=== PATIENT | female | born 2000 | race American Indian/Alaskan Native ===

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

== ENCOUNTER 2020-06-21 19:06 | Emergency (ER) | payer MEDICAID ==
[2020-06-21 23:03] VITALS: BP 115/67
[2020-06-22 01:50] LABS: Basophils % (Auto) 0.4 % (0.0-1.8); Eosinophils # (Auto) 0.1 K/mm3 (0.0-0.4); Eosinophils % (Auto) 0.9 % (0.0-4.3); Hematocrit 34.8 % (30.3-42.9); Hemoglobin 11.4 gm/dl (10.1-14.3); Lymphocytes % (Auto) 23.9 % (13.4-35.0); Mean Corpuscular HGB Conc 33 % (30-34); Mean Corpuscular Volume 85 fl (79-97); Monocytes # (Auto) 0.7 K/mm3 (0.0-0.8); Monocytes % (Auto) 7.8 % (0.0-7.3); Platelet Count 225 K/mm3 (140-440); Red Blood Count 4.07 M/mm3 (3.65-5.03); Red Cell Distribution Width 14.5 % (13.2-15.2)
--- NOTE | 2020-06-24 22:36 | Emergency Department Report ---
ED Female HPI - General Chief complaint: Urogenital-Female Stated complaint: AND WOULD LIKE TO BE CHECK Time Seen by Provider: 06/22/20 00:47 Source: patient Mode of arrival: Ambulatory Limitations: No Limitations - History of Present Illness Initial comments: 20-year-old [place] female is emerged department complaining of a 1+ month history of waxing and waning vaginal itching with occasional discharge that is faint also associated with a rash is bumpy in nature to her groin region. States that she also is but she is unsure exactly how far along. Reports no fever, chills, sweats reports no vaginal bleeding, no chest pain, no presyncope, no headache, no abdominal trauma MD Complaint: vaginal discharge Are you Now?: Yes Associated Symptoms: denies: loss of appetite, dysuria, shortness of breath, syncope, weakness - Related Data Previous Rx's Medication Instructions Recorded Last Taken Type Ibuprofen [Motrin] 800 mg PO Q8HR PRN #30 tablet 08/25/19 Unknown Rx Allergies Allergy/AdvReac Type Severity Reaction Status Date / Time No Known Allergies Allergy Unverified 08/25/19 09:03 ED Review of Systems ROS: Stated complaint: AND WOULD LIKE TO BE CHECK Other details as noted in HPI Comment: All other systems reviewed and negative ED Past Medical Hx - Past Medical History Previous Medical History?: No - Surgical History Past Surgical History?: No - Social History Smoking Status: Never Smoker Substance Use Type: None - Medications Home Medications: Home Medications Medication Instructions Recorded Confirmed Last Taken Type Ibuprofen [Motrin] 800 mg PO Q8HR PRN #30 tablet 08/25/19 Unknown Rx ED Physical Exam - General Limitations: No Limitations General appearance: alert, in no apparent distress - Head Head exam: Present: atraumatic, normocephalic - Eye Eye exam: Present: normal appearance - ENT ENT exam: Present: mucous membranes moist - Neck Neck exam: Present: normal inspection - Respiratory Respiratory exam: Present: normal lung sounds bilaterally. Absent: respiratory distress - Cardiovascular Cardiovascular Exam: Present: regular rate, normal rhythm. Absent: systolic murmur, diastolic murmur, rubs, gallop - GI/Abdominal GI/Abdominal exam: Present: soft, normal bowel sounds - Extremities Exam Extremities exam: Present: normal inspection - Back Exam Back exam: Present: normal inspection - Neurological Exam Neurological exam: Present: alert, oriented X3 - Psychiatric Psychiatric exam: Present: normal affect, normal mood - Skin Skin exam: Present: warm, dry, intact, normal color. Absent: rash ED Course Vital Signs 06/21/20 20:31 Temperature 97.9 F Pulse Rate 87 Respiratory 18 Rate Blood Pressure 115/67 O2 Sat by Pulse 99 Oximetry ED Medical Decision Making - Lab Data Result diagrams: 06/22/20 01:18 - Medical Decision Making The patient is oriented to person, place, and time, has the capacity to make decisions regarding the medical care offered. The patient speaks coherently and exhibits no evidence of having an altered level of consciousness or alcohol or drug intoxication to a point that would impair judgment. They respond knowingly to questions about recommended treatment and alternate treatments including no further testing or treatment; participate in diagnostic and treatment decisions by means of rational thought processes; and understand the items of minimum basic medical treatment information with respect to that treatment (the nature and seriousness of the illness, the nature of the treatment, the probable degree and duration of any benefits and risks of any medical intervention that is being recommended, and the consequences of lack of treatment, and the nature, risks, and benefits of any reasonable alternatives). I have reviewed the relevant issues with the patient. They are aware of the suspected diagnosis suggested by screening exam, , based upon the initiated medical screening exam. The patient acknowledges understanding of the reasons for recommendations regarding medical treatment, medical testing, and further monitoring and observation. The recommended medical care being refused has been discussed with the patient and is. The risks of refusing recommended care that were disclosed and acknowledged by the patient are loss of current lifestyle, permanent mental impairment, and . The patient understands the relevant information of the nature of their medical condition, as well as the risks, benefits, and treatment alternatives (including non-treatment), consequences of refusing care, and can competently communicate a rational explanation about their choice of care options. [Discharge instructions were provided to the patient.] The patient understands they are welcome to return to the hospital at any time to receive the re commended care or any other care at any time, regardless of their ability to pay for such care. Critical care attestation.: If time is entered above; I have spent that time in minutes in the direct care of this critically ill patient, excluding procedure time. ED Disposition Clinical Impression: Vaginitis Disposition: DC-07 LEFT AGAINST MED ADVICE Is pt being admited?: No Does the pt Need Aspirin: No Condition: Undetermined Referrals: PRIMARY CARE, [Primary Care Provider] - 3-5 Days Forms: AMA Form
== END 2020-06-22 01:57 | disposition left against medical advice (07) ==
LOC: ED 19:06
DX: O26.891 Other specified pregnancy related conditions, first trimester (principal); Z53.21 Procedure and treatment not carried out due to patient leaving prior to being seen by health care provider
CPT/HCPCS: 36415; 84703; 85025

== ENCOUNTER 2020-11-28 15:50 | Inpatient (IN) | payer MEDICAID ==
--- NOTE | 2020-11-28 18:03 | History and Physical Report ---
History of Present Illness Date of examination: 11/28/20 Chief complaint: ctx and LOF earlier this morning about 6am. History of present illness: at 40.4wks by dates c/w ultrasoun with c/o painful ctx that started one day ago and worsened today and also LOF at 6am with mucus plug. Denies vag bleeding or headache. pt admits to movement. Declines epidural and wants to eat a meal at this time . care at [facility] with rubella immune, HIV neg, Rh positive, RPR and HepsAg neg and GBS negative. Past History Past Medical History: no pertinent history Past Surgical History: no surgical history Social history: no significant social history - Obstetrical History Expected Date of Delivery: 11/24/20 Actual Gestation: 40 Week(s) 4 Day(s) : 1 Number of Living Children: 0 Medications and Allergies Allergies Allergy/AdvReac Type Severity Reaction Status Date / Time No Known Allergies Allergy Unverified 08/25/19 09:03 Home Medications Medication Instructions Recorded Confirmed Last Taken Type Ibuprofen [Motrin] 800 mg PO Q8HR PRN #30 tablet 08/25/19 Unknown Rx Review of Systems All systems: negative (ctx and LOF) - Vital Signs Vital signs: Vital Signs Pulse Pulse Ox 113 H 97 11/28/20 16:31 11/28/20 16:31 Temp Pulse Resp BP Pulse Ox 99.0 F 117 H 20 112/55 99 11/28/20 16:33 11/28/20 17:47 11/28/20 16:33 11/28/20 16:33 11/28/20 17:47 - Physical Exam Breasts: Positive: deferred Cardiovascular: Regular rate Lungs: Positive: Normal air movement Abdomen: Positive: soft Genitourinary (Female): Positive: normal external genitalia Extremities: Positive: normal - Obstetrical FHR: category 1 Uterine Contraction Monitor Mode: External Cervical Dilatation: 4 (per triage nurse) Cervical Effacement Percentage: 90 station: 0 Uterine Contraction Pattern: Irregular Results All other labs normal. Assessment and Plan Term preg at 40.4wks by dates, GBS negative and in latent labor 1. Admit to labor and delivery 2. Will augment with pitocin if cervix unchanged 3. May have IV pain med or epidural if pt changes her mind 4. plan discussed with pt and she agrees all questions encouraged and answered
[2020-11-28] MEDS ORDERED: TERBUTALINE 1 MG/1 ML INJ SUB-Q PRN (18:44)
[2020-11-28] MEDS ORDERED: LIDOCAINE (2%) 20 MG/1 ML VIAL 20 ML MDV INFILTRATI ONE (18:44)
[2020-11-28] MEDS ORDERED: MINERAL OIL 30 ML ORAL LIQD PO PRN (18:44)
[2020-11-28] MEDS ORDERED: NalbUPHINE 10 MG/1 ML INJ IV PRN (18:44)
[2020-11-28] MEDS ORDERED: ePHEDrine SULFATE 50 MG/1 ML INJ IV PRN (18:44)
[2020-11-28] MEDS ORDERED: fentaNYL 100 MCG/2 ML INJ IV PRN (18:44)
[2020-11-28] MEDS ORDERED: OXYTOCIN DRIP 30 UNITS/500 ML BAG IV SCH ×2 (19:00)
[2020-11-28 19:07] LABS: Hemoglobin 10.6 gm/dl (10.1-14.3); Mean Corpuscular HGB Conc 33 % (30-34); Mean Corpuscular Volume 83 fl (79-97); Platelet Count 283 K/mm3 (140-440); Red Blood Count 3.85 M/mm3 (3.65-5.03); Red Cell Distribution Width 14.4 % (13.2-15.2)
[2020-11-28] MEDS: LACTATED RINGERS 1,000 ML IV SCH ×2 (21:11→22:25)
--- NOTE | 2020-11-29 | Event Note ---
Date: 11/28/20 pt evaluated and FHR category I, AROM done with clear fluid; pelvic -/-, IUPC placed without difficulty. pt already received IV pain med and tearful in pain. Pt told whenever she is ready she can have epidural if she changes her mind. Pt placed in knee/chest position with pain mostly to central back pain. Ctx inadequate at this time with pitocin at 2mu/min. Expect
[2020-11-29] MEDS ORDERED: LIDOCAINE (2%) 20 MG/1 ML VIAL 20 ML MDV INFILTRATI ONE ×2 (00:34→00:55)
[2020-11-29] MEDS ORDERED: miSOPROStol 200 MCG TAB ONE (00:36)
--- NOTE | 2020-11-29 01:19 | Anesthesia Consultation ---
Anesthesia Consult and Med Hx Date of service: 11/29/20 - Airway Anesthetic Teeth Evaluation: Good ROM Head & Neck: Adequate Mental/Hyoid Distance: Adequate Mallampati Class: Class II Intubation Access Assessment: Probably Good - Pulmonary Exam CTA: Yes - Cardiac Exam Cardiac Exam: RRR - Pre-Operative Health Status ASA Pre-Surgery Classification: ASA2 Proposed Anesthetic Plan: Spinal - Pulmonary Hx Smoking: No Hx Asthma: No Hx Sleep Apnea: No - Cardiovascular System Hx Hypertension: No Hx Heart Attack/AMI: No Hx Angina: No - Central Nervous System Hx Seizures: No Hx Psychiatric Problems: No - Gastrointestinal Hx Gastroesophageal Reflux Disease: No - Endocrine Hx Renal Disease: No Hx Liver Disease: No Hx Insulin Dependent Diabetes: No Hx Non-Insulin Dependent Diabetes: No Hx Hypothyroidism: No Hx Hyperthyroidism: No - Hematic Hx Anemia: Yes Hx Sickle Cell Disease: No - Other Systems Hx Alcohol Use: No - Additional Comments Anesthesia Medical History Comments: Placing a saddle block PSR for repair of 3rd degree lac
--- NOTE | 2020-11-29 01:22 | Progress Note ---
Spinal Anesthesia Block - Spinal Anesthesia Block Start Time: 01:05 Stop Time: 01:15 Performed by:: HUGO BENITES Procedure: Spinal anesthesia block is being performed for [repair of 3rd degree laceration]. H&P, labs have been reviewed. Patient's questions and concerns have been answered. Informed consent has been performed. Timeout has was performed. Patient in lateral position on bed. Sterile prep and drape was performed. 3 mL 1% lidocaine skin wheal at L [3]-L [4]. Needle introducer advanced. 25-gauge spinal needle advanced, [+] CSF [-] blood. [Marcaine 7.5mg] Spinal dose was given. All needles removed. Patient placed sitting up to achieve saddle block. Patient tolerated procedure well.
[2020-11-29] MEDS ORDERED: ONDANSETRON 4 MG/2 ML INJ IV PRN ×2 (01:23→06:12)
[2020-11-29] MEDS ORDERED: miSOPROStol 200 MCG TAB VG SCH (02:00)
--- NOTE | 2020-11-29 02:30 | Procedure Note ---
OB Delivery Note - Delivery Date of Delivery: 11/29/20 Surgeon: JUAN SUMMERS Estimated blood loss: other (350cc) - Vaginal Delivery presentation: vertex Delivery position: OA Delivery augmentation: rupture of membranes, pitocin Delivery monitor: external FHT, external uterine, internal uterine Route of delivery: Delivery placenta: spontaneous Delivery laceration: 3rd degree Delivery repair: vicryl (0-vicryl on anal sphincter, partial laceration), chromic (2-0 chromic running locked for the remainder of the repair), other (abraisions x2 to left and right labia that were hemostatic) Anesthesia: other (saddle block by anesthesiologist in the room) Delivery comments: Nurse called me to bed for delivery of baby with head on perineum. SAVD of viable male infant with APGARS 7/9; wt 3884g; spontaneous delivery of placenta. Pt sustained 3rd degree laceration and without epidural. Local anesthetic not effective with inadequate exposure. Anesthesiology team consulted for pain mgt and saddle block done. When same effective and ahumada cath placed to gravity, 3rd degree laceration repaired. Angelica shaped repair done with interrupted 0- vicryl to anal sphincter. rectovag exam done with intact sphincter and remaining repair of vagina done with 2-0 chromic running locked suture and skin subcutaneously with excellent hemostasis. Pt noted to have low grade fever of 99.2 per nurse report and ancef 2gm given. Cervix evaluated and no lacerations seen. Bimanual exam done and pt given IV pitocin and cytotec per rectum with good response. Sponge, lap and instrument counts correct x2. Mom and baby stable - Infant A at 1 minute: 7 at 5 minutes: 9 Infant Gender: Male (Clear amniotic fluid. Wt 3884g)
[2020-11-29] MEDS ORDERED: LACTATED RINGERS 1,000 ML IV ONE (03:11)
[2020-11-29] MEDS ORDERED: MAGNESIUM HYDROXIDE (MOM) ORAL LIQD UDC PO PRN (06:12)
[2020-11-29] MEDS ORDERED: PROMETHAZINE 25 MG TAB PO PRN (06:12)
[2020-11-29] MEDS ORDERED: LANOLIN/ZINC/DIMETHICONE (LANSINOH) 7 GM TP PRN (06:12)
[2020-11-29] MEDS ORDERED: diphenhydrAMINE 25 MG CAP PO PRN (06:12)
[2020-11-29] MEDS ORDERED: PROMETHAZINE 25 MG RECT SUPP PR PRN (06:12)
[2020-11-29] MEDS: IBUPROFEN 600 MG TAB PO SCH ×3 (06:49→23:51)
[2020-11-29] MEDS: oxyCODONE /ACETAMINOPHEN 5-325MG TAB PO PRN ×2 (08:53→17:15)
[2020-11-29] MEDS: WITCH HAZEL/ GLYCERIN PAD TP PRN (08:54)
[2020-11-29] MEDS: DOCUSATE SODIUM 100 MG CAP PO SCH ×2 (08:55→21:15)
[2020-11-29] MEDS: PRENATAL VIT27-FE FUMARATE-FOLIC ACID VIT TAB PO SCH (08:56)
[2020-11-29] MEDS ORDERED: metroNIDAZOLE/NS 500 MG/100 ML 500 MG/100 ML BAG IV ONE (10:30)
--- NOTE | 2020-11-29 10:43 | Post Anesthesia Evaluation ---
- Post Anesthesia Evaluation Patient Participated: Yes Airway Patent: Yes Stable Respiratory Function: Yes Nausea/Vomiting: No Temp > 96.8F: Yes Pain Manageable: Yes Adequeate Hydration: Yes Anesthesia Complications: No Block Receding Appropriately: Yes Patient on Ventilator: No
[2020-11-29 18:15] LABS: Hematocrit 28.4 % (30.3-42.9); Hemoglobin 9.1 gm/dl (10.1-14.3)
[2020-11-29] MEDS: metroNIDAZOLE 500 MG TAB PO SCH (21:15)
[2020-11-30] MEDS: IBUPROFEN 600 MG TAB PO SCH ×5 (05:41→23:47)
--- NOTE | 2020-11-30 10:15 | Progress Note ---
Assessment and Plan A: PP Day #1 Asymptomatic Anemia P: Follow Routine Orders Infed 100mg IM x 1 dose Subjective - Subjective Date of service: 11/30/20 Patient reports: appetite normal, voiding normally, pain well controlled, flatus, ambulating normally [place]: doing well, other (Baby in the room under [employer] [employer]), bottle feeding (and ) Objective - Vital Signs Latest vital signs: Vital Signs Temp Pulse Resp BP BP Pulse Ox 11/30/20 06:39 18 11/30/20 06:38 18 11/30/20 05:41 18 11/30/20 00:51 18 11/30/20 00:15 98.2 F 96 H 20 105/65 98 11/29/20 23:51 18 11/29/20 17:18 20 11/29/20 17:15 20 11/29/20 12:25 97.8 F 101 H 20 117/55 100 Intake and Output 11/29/20 11/30/20 11/30/20 22:59 06:59 14:59 Intake Total 720 Output Total 500 Balance 220 Intake: Oral 360 Intake, Free Water 360 Output: Urine 500 Void 500 Other: Total, Intake Amount 240 Total, Output Amount 500 # Voids Indwelling Catheter 1 - Exam Breasts: Present: normal Cardiovascular: Present: Regular rate Lungs: Present: Clear to auscultation, Normal air movement Abdomen: Present: normal appearance, soft, normal bowel sounds Uterus: Present: normal, firm, fundal height below umbilicus Extremities: Present: normal - Labs Labs: Abnormal lab results 11/29/20 Range/Units 17:49 Hgb 9.1 L (10.1-14.3) gm/dl Hct 28.4 L (30.3-42.9) %
[2020-11-30] MEDS ORDERED: IRON DEXTRAN COMPLEX 100 MG/2 ML INJ IM SCH (11:00)
[2020-11-30] MEDS: DOCUSATE SODIUM 100 MG CAP PO SCH ×2 (11:17→21:48)
[2020-11-30] MEDS: PRENATAL VIT27-FE FUMARATE-FOLIC ACID VIT TAB PO SCH (11:18)
[2020-11-30] MEDS: metroNIDAZOLE 500 MG TAB PO SCH ×2 (11:21→21:48)
[2020-11-30] MEDS: WITCH HAZEL/ GLYCERIN PAD TP PRN (19:57)
[2020-12-01] MEDS: IBUPROFEN 600 MG TAB PO SCH ×2 (05:51→12:00)
--- NOTE | 2020-12-01 10:35 | Discharge Summary ---
Providers - Providers Date of Admission: 11/28/20 15:55 Date of discharge: 12/01/20 Attending physician: DAYANNA DE LA GARZA MD Primary care physician: DAYANNA DE LA GARZA MD Hospitalization Reason for admission: active labor Delivery: other (SAVD) Episiotomy: none Laceration: 3rd degree Incision: normal, intact Discharge diagnosis: IUP at term delivered [place] baby: male Hospital course: Pt was admitted in labor and had a SAVD with a 3rd degree lac. She dev a low grade fever and received abt during pp. See H&P, delivery summary, and pp notes. Condition at discharge: Stable Disposition: DC-01 TO HOME OR SELFCARE Plan - Discharge Medications Prescriptions: Ibuprofen [Motrin] 800 mg PO Q8HR PRN 14 Days #40 tablet PRN Reason: Pain, Mild (1-3) oxyCODONE /ACETAMINOPHEN [Percocet 5/325] 1 tab PO Q4HR 7 Days #20 tab - Provider Discharge Summary Activity: routine, no sex for 6 weeks, no heavy lifting 4 weeks, no strenuous exercise Diet: routine Instructions: routine Additional instructions: [] Smoking cessation referral if applicable(refer to patient education folder for contact #) [] Refer to [facility] Booklet Call your doctor immediately for: * Fever > 100.5 * Heavy vaginal bleeding ( >1 pad per hour) * Severe persistent headache * Shortness of breath * Reddened, hot, painful area to leg or breast * Drainage or odor from incision. * Keep incision clean and dry at all times and follow doctor's instructions regarding bathing/showering - Follow up plan Follow up: DAYANNA DE LA GARZA MD [Primary Care Provider] - 6 Weeks Forms: [facility] Discharge Summary
[2020-12-01] MEDS: metroNIDAZOLE 500 MG TAB PO SCH (11:30)
[2020-12-01] MEDS: DOCUSATE SODIUM 100 MG CAP PO SCH (11:30)
[2020-12-01] MEDS: PRENATAL VIT27-FE FUMARATE-FOLIC ACID VIT TAB PO SCH (11:30)
[2020-12-01 12:49] VITALS: BP 112/58
[2020-12-01] MEDS: WITCH HAZEL/ GLYCERIN PAD TP PRN (13:48)
== END 2020-12-01 15:30 | disposition home or self-care (01) | DRG 775 ==
LOC: TRG 15:50 → APU 15:51 → LD 15:55 → TRG 18:44 → OB 11-29 05:18
PROVIDERS: ADMIT Obstetrics & Gynecology; ATTEND Obstetrics & Gynecology
PROC: 10907ZC Drainage of Amniotic Fluid, Therapeutic from Products of Conception, Via Natural or Artificial Opening (ICD-10-PCS; 2020-11-28)
PROC: 10H07YZ Insertion of Other Device into Products of Conception, Via Natural or Artificial Opening (ICD-10-PCS; 2020-11-28)
PROC: 10E0XZZ Delivery of Products of Conception, External Approach (ICD-10-PCS; principal; 2020-11-29)
PROC: 0DQR0ZZ Repair Anal Sphincter, Open Approach (ICD-10-PCS; 2020-11-29)
PROC: 4A033R1 Measurement of Arterial Saturation, Peripheral, Percutaneous Approach (ICD-10-PCS; 2020-11-29)
DX: O70.20 Third degree perineal laceration during delivery, unspecified (principal); Z3A.40 40 weeks gestation of pregnancy; Z37.0 Single live birth; O99.02 Anemia complicating childbirth; D64.9 Anemia, unspecified; Z20.822 Contact with and (suspected) exposure to COVID-19
CPT/HCPCS: 36415; 59025; 82805; 84112; 85014; 85018; 85027; 86850; 86900; 86901; 99211; G0378; G0463; J0690; J1750; J2590; J3010; J7120; U0003

== ENCOUNTER 2022-03-11 12:34 | Emergency (ER) | payer MEDICAID ==
[2022-03-11 12:49] VITALS: BP 151/69
[2022-03-11] MEDS ORDERED: DEXTROSE 50% IN WATER (25GM) 50 ML SYRINGE IV ONE (21:11)
== END 2022-03-11 19:00 | disposition left against medical advice (07) ==
LOC: ED 12:34
DX: R10.9 Unspecified abdominal pain (principal); Z53.21 Procedure and treatment not carried out due to patient leaving prior to being seen by health care provider
CPT/HCPCS: J3490

== ENCOUNTER 2022-03-12 20:39 | Emergency (ER) | payer MEDICAID ==
--- NOTE | 2022-03-12 23:47 | Emergency Department Report ---
ED Abdominal Pain HPI - General Chief Complaint: Abdominal Pain Stated Complaint: ABD PAIN/HERNIA Time Seen by Provider: 03/12/22 23:09 Source: patient Mode of arrival: Ambulatory Limitations: No Limitations - History of Present Illness Initial Comments: 21-year-old female no significant past medical history reports to the ER with complaints of abdominal hernia for 2 to 3 days. Patient reports decreasing abdominal gas as well as a decrease in bowel movements. Patient also reports nausea. Patient reports no history of abdominal hernia. Patient reports that about 2 to 3 days ago she was bringing some groceries in when she experienced abdominal discomfort. Patient reports no fever. No chills. No other acute symptoms at this time. - Related Data Previous Rx's Medication Instructions Recorded Last Taken Type Ibuprofen [Motrin] 800 mg PO Q8HR PRN #30 tablet 08/25/19 Unknown Rx Ibuprofen [Motrin] 800 mg PO Q8HR PRN 14 Days #40 11/29/20 Unknown Rx tablet oxyCODONE /ACETAMINOPHEN [Percocet 1 tab PO Q4HR 7 Days #20 tab 11/29/20 Unknown Rx 5/325] Allergies Allergy/AdvReac Type Severity Reaction Status Date / Time No Known Allergies Allergy Verified 03/11/22 12:47 ED Review of Systems ROS: Stated complaint: ABD PAIN/HERNIA Other details as noted in HPI Comment: All other systems reviewed and negative Gastrointestinal: abdominal pain, nausea. denies: vomiting ED Past Medical Hx - Past Medical History Previous Medical History?: No Hx Hypertension: No Hx Heart Attack/AMI: No Hx Diabetes: No Hx Deep Vein Thrombosis: No Hx Liver Disease: No Hx Renal Disease: No Hx Sickle Cell Disease: No Hx Seizures: No Hx Asthma: No Hx HIV: No Additional medical history: HERNIA - Social History Smoking Status: Never Smoker - Medications Home Medications: Home Medications Medication Instructions Recorded Confirmed Last Taken Type Ibuprofen [Motrin] 800 mg PO Q8HR PRN #30 tablet 08/25/19 11/29/20 Unknown Rx Ibuprofen [Motrin] 800 mg PO Q8HR PRN 14 Days #40 11/29/20 Unknown Rx tablet oxyCODONE /ACETAMINOPHEN [Percocet 1 tab PO Q4HR 7 Days #20 tab 11/29/20 Unknown Rx 5/325] ED Physical Exam - General Limitations: No Limitations General appearance: alert, in no apparent distress - Head Head exam: Present: atraumatic, normocephalic - Eye Eye exam: Present: normal appearance - ENT ENT exam: Present: mucous membranes moist - Neck Neck exam: Present: normal inspection - Respiratory Respiratory exam: Present: normal lung sounds bilaterally. Absent: respiratory distress - Cardiovascular Cardiovascular Exam: Present: regular rate, normal rhythm. Absent: systolic murmur, diastolic murmur, rubs, gallop - GI/Abdominal GI/Abdominal exam: Present: soft, distended, tenderness, normal bowel sounds, hernia. Absent: guarding - Extremities Exam Extremities exam: Present: normal inspection - Back Exam Back exam: Present: normal inspection - Neurological Exam Neurological exam: Present: alert, oriented X3 - Psychiatric Psychiatric exam: Present: normal affect, normal mood - Skin Skin exam: Present: warm, dry, intact, normal color. Absent: rash ED Course Vital Signs 03/12/22 03/13/22 21:08 04:11 Temperature 98.6 F Pulse Rate 83 81 Respiratory 18 14 Rate Blood Pressure 123/67 127/69 [Right] O2 Sat by Pulse 98 100 Oximetry ED Medical Decision Making - Lab Data Result diagrams: 03/12/22 23:54 03/12/22 23:54 - Radiology Data [facility] [address] [place] [address] Ultrasound Report Signed Patient: JAMES SMITH MR# : [id number] : 2000 Acct:[id number] Age/Sex: 21 / F ADM Date: 03/12/22 Loc: ED Attending Dr: Ordering Physician: ELVER GUALLPA NP Date of Service: 03/13/22 Procedure(s): US abdomen limited Accession Number(s): [id number] cc: ELVER GUALLPA NP LIMITED ABDOMINAL WALL ULTRASOUND INDICATION: , abdominal wall palpable abnormality near the umbilicus COMPARISON: None FINDINGS: Within the anterior abdominal wall near the umbilicus in the area of palpable concern there is a questionable ovoid hypoechoic area in the deep subcutaneous tissues which may just represent a slightly more hypoechoic band of abnormal tissue rather than a true lesion. Possibly this could be a small hematoma but I doubt is significant. This may be worthwhile following with ultrasound to determine stability however. EARLY OBSTETRICAL ULTRASOUND INDICATION: preg . unknown weeks. COMPARISON: None pertinent available TECHNIQUE: Transabdominal FINDINGS: Uterus measures 15.4 cm. Small uterine fundal gestational sac is seen. pole is noted with estimated gestational age by crown-rump length of 6 weeks 2 days. Cardiac activity was documented at 130 bpm. Yolk sac is seen. Ovaries appear within normal limits with blood flow seen. No free fluid is noted. IMPRESSION: 6 week 2 days viable appearing intrauterine Signer Name: Demarcus Rahman MD Signed: 03/13/2022 3:45 AM Workstation Name: [id number] Transcribed By: BECKY Dictated By: Demarcus Rahman MD Electronically Authenticated By: Demarcus Rahman MD Signed Date/Time: 03/13/22 0345 DD/ 0334 TD/TT: - Medical Decision Making 21-year-old female no significant past medical history reports to the ER with complaints of abdominal hernia for 2 to 3 days. Patient reports decreasing abdominal gas as well as a decrease in bowel movements. Patient also reports nausea. Patient reports no history of abdominal hernia. Patient reports that about 2 to 3 days ago she was bringing some groceries in when she experienced abdominal discomfort. Patient reports no fever. No chills. No other acute symptoms at this time. On physical exam there is a slight distention noted near the umbilicus. No firmness noted. Attempted reduction, does not appear to be hernia in nature. No pulsation noted. CBC CMP unremarkable. hCG quant 54,868 Ultrasound. FINDINGS: Within the anterior abdominal wall near the umbilicus in the area of palpable concern there is a questionable ovoid hypoechoic area in the deep subcutaneous tissues which may just represent a slightly more hypoechoic band of abnormal tissue rather than a true lesion. Possibly this could be a small hematoma but I doubt is significant. This may be worthwhile following with ultrasound to determine stability however. Patient is 6 weeks 2 days with a viable IUP. Patient informed the ultrasound results patient informed to follow her [employer] to have follow-up with ultrasound imaging. Patient has had a bowel movement while here in the ER. Unlikely patient does have a hernia. Patient reports she had a similar distention and close umbilicus 6 weeks of her prior last year. Patient agrees with plan of care and verbalized understanding. No further work-up is noted at this time. Patient informed if symptoms are to get worse to report back to the ER. Vital Signs 03/12/22 03/13/22 21:08 04:11 Temperature 98.6 F Pulse Rate 83 81 Respiratory 18 14 Rate Blood Pressure 123/67 127/69 [Right] O2 Sat by Pulse 98 100 Oximetry Lab Results 03/12/22 03/12/22 03/12/22 Range/Units 23:54 23:54 23:54 WBC 8.6 (4.5-11.0) K/mm3 RBC 4.43 (3.65-5.03) M/mm3 Hgb 10.3 (10.1-14.3) gm/dl Hct 32.6 (30.3-42.9) % MCV 74 L (79-97) fl MCH 23 L (28-32) pg MCHC 32 (30-34) % RDW 17.5 H (13.2-15.2) % Plt Count 347 (140-440) K/mm3 Lymph % (Auto) 31.7 (13.4-35.0) % Letcher % (Auto) 9.8 H (0.0-7.3) % Eos % (Auto) 0.5 (0.0-4.3) % Baso % (Auto) 0.5 (0.0-1.8) % Lymph # (Auto) 2.7 (1.2-5.4) K/mm3 Letcher # (Auto) 0.8 (0.0-0.8) K/mm3 Eos # (Auto) 0.0 (0.0-0.4) K/mm3 Baso # (Auto) 0.0 (0.0-0.1) K/mm3 Seg Neutrophils % 57.5 (40.0-70.0) % Seg Neutrophils # 4.9 (1.8-7.7) K/mm3 Sodium 135 L (137-145) mmol/L Potassium 3.8 (3.6-5.0) mmol/L Chloride 102.3 (98-107) mmol/L Carbon Dioxide 22 (22-30) mmol/L Anion Gap 15 mmol/L BUN 7 (7-17) mg/dL Creatinine 0.6 (0.6-1.2) mg/dL Estimated GFR > 60 ml/min BUN/Creatinine Ratio 12 % Glucose 81 (65-100) mg/dL Calcium 9.3 (8.4-10.2) mg/dL Total Bilirubin 0.40 (0.1-1.2) mg/dL AST 22 (5-40) units/L ALT 16 (7-56) units/L Alkaline Phosphatase 59 (35-129) units/L Total Protein 7.1 (6.3-8.2) g/dL Albumin 4.2 (3.9-5) g/dL Albumin/Globulin Ratio 1.4 % HCG, Qual (Negative) HCG, Quant [id number] H (0-4) mIU/mL 03/12/22 03/13/22 Range/Units 23:54 00:51 WBC (4.5-11.0) K/mm3 RBC (3.65-5.03) M/mm3 Hgb (10.1-14.3) gm/dl Hct (30.3-42.9) % MCV (79-97) fl MCH (28-32) pg MCHC (30-34) % RDW (13.2-15.2) % Plt Count (140-440) K/mm3 Lymph % (Auto) (13.4-35.0) % Letcher % (Auto) (0.0-7.3) % Eos % (Auto) (0.0-4.3) % Baso % (Auto) (0.0-1.8) % Lymph # (Auto) (1.2-5.4) K/mm3 Letcher # (Auto) (0.0-0.8) K/mm3 Eos # (Auto) (0.0-0.4) K/mm3 Baso # (Auto) (0.0-0.1) K/mm3 Seg Neutrophils % (40.0-70.0) % Seg Neutrophils # (1.8-7.7) K/mm3 Sodium (137-145) mmol/L Potassium (3.6-5.0) mmol/L Chloride (98-107) mmol/L Carbon Dioxide (22-30) mmol/L Anion Gap mmol/L BUN (7-17) mg/dL Creatinine (0.6-1.2) mg/dL Estimated GFR ml/min BUN/Creatinine Ratio % Glucose (65-100) mg/dL Calcium (8.4-10.2) mg/dL Total Bilirubin (0.1-1.2) mg/dL AST (5-40) units/L ALT (7-56) units/L Alkaline Phosphatase (35-129) units/L Total Protein (6.3-8.2) g/dL Albumin (3.9-5) g/dL Albumin/Globulin Ratio % HCG, Qual Positive (Negative) HCG, Quant 06176 H (0-4) mIU/mL Critical care attestation.: If time is entered above; I have spent that time in minutes in the direct care of this critically ill patient, excluding procedure time. ED Disposition Clinical Impression: Abdominal pain Qualifiers: Abdominal location: periumbilical Qualified Code(s): R10.33 - Periumbilical pain Qualifiers: Weeks of gestation: less than 8 weeks Qualified Code(s): Z3A.01 - Less than 8 weeks gestation of Disposition: 01 HOME / SELF CARE / HOMELESS Is pt being admited?: No Condition: Stable Instructions: Abdominal Pain, Adult, First Trimester of , [id number], Abdominal Pain (ED) Referrals: MITCHEL BARRIENTOS MD [Primary Care Provider] - 3-5 Days
[2022-03-13 00:35] LABS: Alanine Aminotransferase 16 units/L (7-56); Albumin 4.2 g/dL (3.9-5); BUN/Creatinine Ratio 12; Blood Urea Nitrogen 7 mg/dL (7-17); Calcium 9.3 mg/dL (8.4-10.2); Hemolysis Index 3
[2022-03-13 02:11] LABS: Basophils % (Auto) 0.5 % (0.0-1.8); Eosinophils % (Auto) 0.5 % (0.0-4.3); Hematocrit 32.6 % (30.3-42.9); Hemoglobin 10.3 gm/dl (10.1-14.3); Lymphocytes # (Auto) 2.7 K/mm3 (1.2-5.4); Lymphocytes % (Auto) 31.7 % (13.4-35.0); Mean Corpuscular HGB Conc 32 % (30-34); Mean Corpuscular Volume 74 fl (79-97); Monocytes # (Auto) 0.8 K/mm3 (0.0-0.8); Monocytes % (Auto) 9.8 % (0.0-7.3); Platelet Count 347 K/mm3 (140-440); Red Blood Count 4.43 M/mm3 (3.65-5.03); Red Cell Distribution Width 17.5 % (13.2-15.2)
--- NOTE | 2022-03-13 03:49 | Ultrasound Report ---
LIMITED ABDOMINAL WALL ULTRASOUND INDICATION: , abdominal wall palpable abnormality near the umbilicus COMPARISON: None FINDINGS: Within the anterior abdominal wall near the umbilicus in the area of palpable concern there is a questionable ovoid hypoechoic area in the deep subcutaneous tissues which may just represent a slightly more hypoechoic band of abnormal tissue rather than a true lesion. Possibly this could be a small hematoma but I doubt is significant. This may be worthwhile following with ultrasound to determ ine stability however. EARLY OBSTETRICAL ULTRASOUND INDICATION: preg . unknown weeks. COMPARISON: None pertinent available TECHNIQUE: Transabdominal FINDINGS: Uterus measures 15.4 cm. Small uterine fundal gestational sac is seen. pole is noted with estimated gestational age by crown-rump length of 6 weeks 2 days. Cardiac activity was documente d at 130 bpm. Yolk sac is seen. Ovaries appear within normal limits with blood flow seen. No free fluid is noted. IMPRESSION: 6 week 2 days viable appearing intrauterine Signer Name: Demarcus Rahman MD Signed: 03/13/2022 3:45 AM Workstation Name: [id number]
[2022-03-13 04:12] VITALS: BP 127/69
== END 2022-03-13 04:12 | disposition home or self-care (01) ==
LOC: ED 20:39
DX: O26.891 Other specified pregnancy related conditions, first trimester (principal); R10.9 Unspecified abdominal pain; Z3A.01 Less than 8 weeks gestation of pregnancy
CPT/HCPCS: 36415; 76705; 76801; 80053; 84702; 84703; 85025; 99284